=== PATIENT | male | born 2000 | race Caucasian/White ===

== ENCOUNTER 2020-03-19 11:43 | Outpatient (REF) | payer MEDICAID, SELFPAY | END 2020-03-19 11:44 | disposition home or self-care (01) | LOC: HO.LAB 11:43 | PROVIDERS: Visit Provider Internal Medicine | DX: Z20.822 Contact with and (suspected) exposure to COVID-19 (principal) | CPT/HCPCS: 36415; C9803; U0003; U0005 ==

== ENCOUNTER 2020-04-02 13:05 | Outpatient (REF) | payer MEDICAID, SELFPAY | END 2020-04-02 13:06 | disposition home or self-care (01) | LOC: HO.LAB 13:05 | PROVIDERS: Visit Provider Internal Medicine | DX: Z20.822 Contact with and (suspected) exposure to COVID-19 (principal) | CPT/HCPCS: 36415; C9803; U0003; U0005 ==

== ENCOUNTER 2023-09-02 06:46 | Emergency (ER) | payer SELFPAY ==
[2023-09-02 07:01] VITALS: BP 115/76; PULSE 96; RESP 16; TEMP 36.8; O2SAT 98; BMI 20.5
--- NOTE | 2023-09-02 07:17 | ED_ITS ---
HPI - URI/Sore Throat General Chief Complaint: Upper Respiratory Symptoms Stated Complaint: sinus pressure, headache Time Seen by Provider: 09/02/23 07:13 Source: patient, RN notes reviewed and old records reviewed Mode of arrival: ambulatory Limitations: no limitations History of Present Illness ED Provider: MEME BRAR PA-C HPI Narrative: 23-year-old male with no significant past medical history presents to the emergency department today for evaluation of myalgias, sore throat, sinus pain, headache, and cough productive of green sputum x1 day. Denies documented fever however feels warm. Reports taking Tylenol and ibuprofen with last dose being yesterday. Denies known sick contacts. All vaccinations are up-to-date. Related Data Previous Rx's ?Medication ?Instructions ?Recorded amoxicillin 875 mg-potassium 1 tab PO Q12H 7 days #14 tabs 09/02/23 clavulanate 125 mg tablet Allergies Allergy/AdvReac Type Severity Reaction Status Date / Time Penicillins [PENICILLINS] Allergy Unknown RASH Verified 09/02/23 07:03 Review of Systems Review of Systems: Constitutional: No fever, chills, fatigue, night sweats, weight changes ENT/Mouth: No ear pain, hearing loss, nasal congestion, sinus pain, rhinorrhea, +sore throat, +odynophagia, No dysphagia Eyes: No eye pain, swelling, redness, vision changes, discharge Cardio: No chest pain, palpitations, BENOIT, orthopnea, peripheral edema Pulm: No SOB, cough, sputum, wheezing, dyspnea, hemoptysis GI: No nausea, vomiting, hematemesis, abdominal pain, diarrhea, constipation, hematochezia, melena : No irregular bleeding, dysuria, frequency, urgency, hesitancy, hematuria, flank pain MSK: No back pain, neck pain, joint pain, +myalgias Skin: No lesions, rashes Neuro: No weakness, numbness, paresthesias, LOC, dizziness, +headache All other systems reviewed and are negative. [facility] Past Medical History Attestation statement: The following information was validated with the patient. Source: old records reviewed and nursing notes reviewed Social History Social History Advance Directives: No Advance Directives Information Provided: No Physical Exam Vital Signs: Vital Signs: Last Vital Signs Temp 98.3 F 09/02/23 09:53 Pulse 70 09/02/23 09:53 Resp 16 09/02/23 09:53 BP 114/66 09/02/23 09:53 Pulse Ox 99 09/02/23 09:53 O2 Del Method Room Air 09/02/23 09:53 BMI result Body Mass Index 20.5 Vital signs stable, afebrile Const: General: cooperative, healthy appearing, comfortable, no acute distress, alert and awake Orientation/consciousness: patient oriented x3 Limitations: no limitations HEENT: Other: Posterior oropharynx erythematous, no edema. No peritonsillar masses or tonsillar exudates. Uvula midline. Controlling secretions and speaking in complete sentences. Head: Yes normal to inspection, Yes No palpable skull fracture present, Yes normocephalic and Yes atraumatic Ears: hearing grossly normal bilaterally, external ears normal, TM's normal bilaterally, EAC's normal, mastoids normal and no periauricular adenopathy General nose exam: Normal external nose present and No nasal discharge present Face and sinus: Yes normal facial exam and Yes sinuses nontender Eyes: General: appearance normal, both eyes and all related structures Pupils: Equal, round and reactive pupils present Neck: Neck: Yes normal visual inspection, Yes full ROM, Yes no lymphadenopathy and Yes no meningeal signs Resp: Effort & Inspection: normal respiratory effort, able to speak in comple te sentences and no cough Auscultation: clear to auscultation bilaterally Cardio: Rate: regular rate Rhythm: regular rhythm GI: Inspection: Yes normal to inspection Palpation (GI): Soft to palpation and nontender Skin: General skin exam: no rashes or lesions noted Neuro: General: patient oriented x3, gait normal, moves all extremities and no meningeal signs Cranial nerves: Yes Equal, round and reactive pupils present Extrem: General: Yes normal to inspection Course Course Course Narrative: 920-- patient has tested negative for COVID, flu, RSV, strep throat. His physical exam is consistent with sinusitis. Of note, he does have a penicillin allergy with reaction of rash. Will administer 1 dose in the ED today and observe for reaction. If no reaction, will send home with Augmentin. His vitals have remained stable and he is still afebrile. 1000-- Patient has remained stable throughout ED visit today. Discussed worr isome signs and symptoms and when to return to the ED. All questions answered at this time. Patient is agreeable with disposition and stable for discharge. Medications Administered Discontinued Medications Generic Name Dose Route Start Last Admin Trade Name Mark PRN Reason Stop Dose Admin Amoxicillin/Clavulanate Potassium 875 mg 09/02/23 09:19 09/02/23 09:27 Amoxicillin/Potassium Clav 875 Mg Tablet PO 09/02/23 09:20 875 mg ONCE ONE Administration Ketorolac Tromethamine 30 mg 09/02/23 07:42 09/02/23 08:28 Ketorolac Tromethamine 30 Mg/Ml Vial IM 09/02/23 07:43 30 mg ONCE ONE Administration Medical Decision Making Medical Decision Making [facility] Narrative: 23-year-old male with no significant past medical history presents to the emergency department today for evaluation of myalgias, sore throat, sinus pain, headache, and cough productive of green sputum x1 day. Vital signs stable, afebrile. He is nontoxic-appearing and in no acute distress. On exam, lungs are CTA bilaterally. No active coughing. Both maxillary and frontal sinuses tender to percussion. Exam is nonfocal. No nuchal rigidity or meningeal signs. Posterior oropharynx erythematous, no edema. No peritonsillar masses or t onsillar exudates. Uvula midline. Controlling secretions and speaking in complete sentences. Bilateral EACs and TMs WNL. Clinical concern for strep throat, viral syndrome, sinusitis. Lower suspicion for otitis media, otitis externa. Unlikely mono, [employer], retropharyngeal abscess, dental abscess, epiglottis, pneumonia, bronchitis, meningitis. Plan for viral and strep swabs, pain control, and re-evaluation. Differential Diagnosis Differential Diagnoses: The differential diagnosis associated with the presentation includes as above. Admission/Observation Not indicated Lab Data [facility] Lab Attestation statement: I reviewed the patient's lab results. as above Labs: Lab Results 09/02/23 Range/Units 07:07 Influenza Type A (PCR) NEGATIVE (Negative) Influenza Type B (PCR) NEGATIVE (Negative) RSV RNA Qual (PCR) NEGATIVE (Negative) SARS-CoV-2 RNA (RT-PCR) NEGATIVE (Negative) S. pyogenes GrpA STEVEN Negative (Negative) External Record Review External record reviewed: Inpatient record Tests considered The following testing was considered but not selected: I considered ordering chest x-ray however lungs are CTA bilaterally, no concern for pneumonia at this time. Prescription Management I considered prescription management with: Pain Medication and Antibiotic Social Determinants Patient?s care significantly limited by Social Determinants of Health including: Other Social Determinant of Health Critical Care Time Critical Care Time Critical Care Time: No Discharge Plan Discharge Clinical Impression: Sinusitis Patient Disposition: Home, Self-Care Instructions: Sinusitis (ED) Additional Instructions: You tested negative for covid, flu, rsv, and strep throat. You likely have a sinus infection. Augmentin is an antibiotic that has been sent to your pharmacy for treatment. Take this to completion and do not skip any doses. On amoxicillin-clavulanate, softer bowel movements are to be expected. Call your provider if you move your bowels more than 4 times a day, your bowel movements are almost all liquid, or you get a rash.? You may take tylenol and motrin at home as needed for pain/ fevers. Return with new or worsening symptoms. In the case of an emergency call 911. Prescriptions: New amoxicillin-pot clavulanate 875-125 mg tablet 1 tab PO Q12H 7 Days Qty: 14 0RF Stand Alone Forms: Work/School Release Discharge Date/Time: 09/02/23 09:54 Print Language: Burmese
[2023-09-02 07:41] LABS: IDNOW Serial# 6674DD1D; Strep A Nucleic Acid Negative (Negative)
[2023-09-02] MEDS: Ketorolac Tromethamine 30 MG/ML VIAL IM (08:28)
[2023-09-02 09:15] LABS: Influenza A PCR NEGATIVE (Negative); Influenza B PCR NEGATIVE (Negative); Resp Syncy Virus RNA Qual PCR NEGATIVE (Negative); SARS COV2 PCR INHOUSE NEGATIVE (Negative)
[2023-09-02] MEDS: Amoxicillin/Potassium Clav 875 MG TABLET PO (09:27)
[2023-09-02 09:53] VITALS: BP 114/66; PULSE 70; RESP 16; TEMP 36.8; O2SAT 99
== END 2023-09-02 09:54 | disposition home or self-care (01) ==
PROVIDERS: Emergency Provider Emergency Medicine
DX: J32.8 Other chronic sinusitis (principal); R51.9 Headache, unspecified; J02.9 Acute pharyngitis, unspecified; Z03.818 Encounter for observation for suspected exposure to other biological agents ruled out
CPT/HCPCS: 0241U; 87651; 96372; 99284; J1885

== ENCOUNTER 2024-05-17 12:11 | Emergency (ER) | payer SELFPAY ==
[2024-05-17 12:20] VITALS: BP 112/77; PULSE 83; RESP 16; TEMP 37; O2SAT 99; BMI 19.9
--- NOTE | 2024-05-17 12:24 | ED_ITS ---
HPI - Nausea/Vomiting/Diarrhea General Chief complaint: Abdominal Pain Stated complaint: Vomiting Time Seen by Provider: 05/17/24 17:08 Source: patient Mode of arrival: ambulatory Limitations: no limitations History of Present Illness ED Provider: TATIANA HPI Narrative: 23 yo male with no PMH here with waking up with nausea and vomiting no diarrhea no fevers, no bloody stools started while at work. Recent sick contact, no travel, food exposures, abx use. MD elicited complaint: nausea and vomiting Onset (ago): day(s) (1) Description of vomiting: watery Associated nausea: Yes Associated abdominal pain: No Severity: moderate Exacerbating factors: eating Relieving factors: none Context: sick contacts Associated symptoms: loss of appetite, malaise and nausea/vomiting Related Data Previous Rx's ?Medication ?Instructions ?Recorded amoxicillin 875 mg-potassium 1 tab PO Q12H 7 days #14 tabs 09/02/23 clavulanate 125 mg tablet ondansetron 4 mg disintegrating 4 mg PO Q8H PRN nausea and 05/17/24 tablet vomiting #20 tabs Allergies Allergy/AdvReac Type Severity Reaction Status Date / Time Penicillins [PENICILLINS] Allergy Unknown RASH Verified 05/17/24 12:23 Review of Systems 2 Review of Systems: Constitutional : No Weight loss, No Fever, No Chills ENT/Mouth : No sore throat, No Rhinorrhea Eyes: No Swelling, No Redness Cardiovascular : No Chest Pain, No SOB, NoEdema Respiratory : No Cough, No Sputum, No Wheezing Gastrointestinal : Positive Nausea, Positive Vomiting, no Diarrhea, positive abdominal Pain, No Hematochezia, No Melena Genitourinary : No Dysuria, No Urinary Frequency, No Hematuria, No Urgency Musculoskeletal : No joint pain, No Myalgias, No Joint Swelling Skin : No Skin Lesions, No rash Neuro : No Weakness, No Numbness, No Dizziness, No Headache Psych : No Anxiety/Panic, No Depression All other systems reviewed and are negative. Gastrointestinal: Gastrointestinal: Reports nausea PMFSH Past Medical History Attestation statement: The following information was validated with the patient. Source: old records reviewed Medical History (Updated 05/17/24 @ 17:22 by Sandy Tobias DO) No pertinent past medical history Social History Social History (Updated 05/17/24 @ 17:22 by Sandy [place], DO) Patient Tobacco Use Status: Never used Tobacco Physical Exam 2 Vital Signs: Vital Signs: Last Vital Signs Temp 98.2 F 05/17/24 17:06 Pulse 67 05/17/24 17:06 Resp 15 05/17/24 17:06 BP 114/68 05/17/24 17:06 Pulse Ox 100 05/17/24 17:06 O2 Del Method Room Air 05/17/24 17:06 BMI result Body Mass Index 19.9 Appearance: Alert. Oriented X3. No acute distress. Eyes: Pupils equal, round and reactive to light. ENT: Pharynx normal. Neck: Normal inspection. Neck supple. CVS: Normal heart rate and rhythm. Pulses normal. Respiratory: No respiratory distress. Breath sounds normal. Abdomen: Soft and nontender. Skin: Skin warm and dry. Normal skin color. Normal skin turgor. Extremities: No lower extremity edema. No calf ttp Neuro: Oriented X 3. No motor deficit. No sensory deficit. CN2-12 intact Course Course Course Narrative: This is an RME: Additional HPI, ROS, PE not included below will be deferred to primary provider. RME assessment and note performed by: Ana Dykes PA-C This is a 23-year- old male, with no known medical problems, who presents emergency department complaints of abdominal pain, nausea and vomiting started this morning. Positive sick contacts at home. +marijuana use. Plan: Labs, covid/flu/rsv Medications Administered Discontinued Medications Generic Name Dose Route Start Last Admin Trade Name Freq PRN Reason Stop Dose Admin Ondansetron HCl 4 mg 05/17/24 17:03 05/17/24 17:06 Ondansetron Odt 4 Mg Tab.Rapdis TRANSLINGU 05/17/24 17:04 4 mg ONCE STA Administration Medical Decision Making Medical Decision Making [facility] Narrative: 23 yo male with no sig PMH here with c/o n/v but is now able to tolerate PO he reports sick contacts, has no localized ttp at this time. Will obtain labs and start on bland diet and ODT zofran, no localized pain to suggest appendicitis/biliary colic. Differential Diagnosis Differential Diagnoses: The differential diagnosis associated with the presentation includes dehydration, viral syndrome Admission/Observation Consideration of admission/observation: Escalation of care including admission/observation considered tolerating PO feels much better stable for DC Lab Data [facility] Lab Attestation statement: I reviewed the patient's lab results. wbc count likely due to vomiting 05/17/24 13:07 05/17/24 13:07 Labs: Lab Results 05/17/24 Range/Units 13:07 WBC 12.1 H (4.8-10.8) X10*3/uL RBC 5.77 (4.60-5.80) X10*6/uL Hgb 15.2 (14.0-18.0) g/dl Hct 47.5 (42.0-52.0) % MCV 82.3 (80.0-98.0) fL MCH 26.3 L (27.0-33.0) pg MCHC 32.0 (31.0-36.0) g/dl RDW 13.7 (11.0-16.0) % Plt Count 324 (160-400) X10*3/uL MPV 9.0 L (9.4-12.4) fL Immature Gran % (Auto) 0.2 (0.0-0.4) % Neut % (Auto) 83.1 H (45-73) % Lymph % (Auto) 7.3 L (20-40) % Winn % (Auto) 6.7 (2-11) % Eos % (Auto) 2.5 (0-4) % Baso % (Auto) 0.2 (0-2) % Lymph # (Auto) 0.9 L (1.2-4.9) X10*3/uL Winn # (Auto) 0.8 (0.1-1.2) X10*3/uL Eos # (Auto) 0.3 (0.0-0.4) X10*3/uL Baso # (Auto) 0.0 (0.0-0.2) X10*3/uL Abs Immat Gran (auto) 0.03 (0.00-0.03) X10*3/uL Absolute Neuts (auto) 10.1 H (2.0-8.3) x10*3/uL Absolute Nucleated RBC 0.000 (0.0-0.012) X10*3/uL Nucleated RBC % (auto) 0.0 (0.0-0.2) /100WBC Sodium 141 (135-145) mmol/L Potassium 4.1 (3.3-5.1) mmol/L Chloride 105 (96-108) mmol/L Carbon Dioxide 30 H (22-29) mmol/L Anion Gap 10 L (12-20) BUN 21 H (9-16) mg/dL Creatinine 1.08 (0.5-1.4) mg/dL Estim Creat Clear Calc 92.1 Estimated GFR > 60 Random Glucose 89 (60-115) mg/dL Calcium 9.9 (8.4-10.2) mg/dL Magnesium 2.2 (1.6-2.6) mg/dL Total Bilirubin 0.8 (0.0-1.0) mg/dL Direct Bilirubin 0.3 (0.0-0.5) mg/dL AST 26 (5-37) U/L ALT 24 (0-40) U/L Alkaline Phosphatase 88 (39-117) U/L Total Protein 7.5 (6.5-8.0) g/dL Albumin 4.9 (3.5-5.0) g/dL Lipase 19 (8-78) U/L Influenza Type A (PCR) NEGATIVE (Negative) Influenza Type B (PCR) NEGATIVE (Negative) RSV RNA Qual (PCR) NEGATIVE (Negative) SARS-CoV-2 RNA (RT-PCR) NEGATIVE (Negative) Prescription Management I considered prescription management with: Other Discharge Plan Discharge Clinical Impression: Acute nausea with nonbilious vomiting Patient Disposition: Home, Self-Care Instructions: Acute Nausea and Vomiting (ED) Additional Instructions: rest and stay hydrated bland diet bananas rice apple sauce and toast return for worsening symptoms, pain, fevers, bloody stools unable to eat or drink or any other concerns. Prescriptions: New ondansetron 4 mg tablet,disintegrating 4 mg PO Q8H PRN (Reason: nausea and vomiting) Qty: 20 0RF No Action amoxicillin-pot clavulanate 875-125 mg tablet 1 tab PO Q12H 7 Days Qty: 14 0RF Stand Alone Forms: Work/School Release Print Language: Chinese
[2024-05-17 13:13] LABS: MANUAL DIFF FLAG NO
[2024-05-17 13:15] LABS: Basophils Percent Auto 0.2 % (0-2); Eosinophils Absolute Auto 0.3 X10*3/uL (0.0-0.4); Eosinophils Percent Auto 2.5 % (0-4); Hematocrit 47.5 % (42.0-52.0); Hemoglobin 15.2 g/dl (14.0-18.0); Imm Gran Abs Auto 0.03 X10*3/uL (0.00-0.03); Imm Gran Pct Auto 0.2 % (0.0-0.4); Lymphocytes Absolute Auto 0.9 X10*3/uL (1.2-4.9); Lymphocytes Percent Auto 7.3 % (20-40); Mean Corpuscular Hemoglobin 26.3 pg (27.0-33.0); Mean Corpuscular Volume 82.3 fL (80.0-98.0); Monocytes Absolute Auto 0.8 X10*3/uL (0.1-1.2); Monocytes Percent Auto 6.7 % (2-11); Neutrophils Absolute Auto 10.1 x10*3/uL (2.0-8.3); Neutrophils Percent Auto 83.1 % (45-73); Platelet Count 324 X10*3/uL (160-400); Red Blood Count 5.77 X10*6/uL (4.60-5.80); Red Cell Distribution Width 13.7 % (11.0-16.0); White Blood Count 12.1 X10*3/uL (4.8-10.8)
[2024-05-17 13:31] LABS: Alanine Aminotransferase 24 U/L (0-40); Albumin Level 4.9 g/dL (3.5-5.0); Alkaline Phosphatase 88 U/L (39-117); Anion Gap 10 (12-20); Aspartate Amino Transferase 26 U/L (5-37); Bilirubin Direct 0.3 mg/dL (0.0-0.5); Bilirubin Total 0.8 mg/dL (0.0-1.0); Blood Urea Nitrogen 21 mg/dL (9-16); Calcium 9.9 mg/dL (8.4-10.2); Carbon Dioxide 30 mmol/L (22-29); Chloride 105 mmol/L (96-108); Creatinine Clr Calc Pharmacy 92.1; Estimated Glomerular Filt Rate > 60; Glucose Random 89 mg/dL (60-115); Lipase 19 U/L (8-78); Magnesium 2.2 mg/dL (1.6-2.6); Potassium 4.1 mmol/L (3.3-5.1); Sodium 141 mmol/L (135-145); Total Protein 7.5 g/dL (6.5-8.0)
[2024-05-17 13:53] LABS: Influenza A PCR NEGATIVE (Negative); Influenza B PCR NEGATIVE (Negative); Resp Syncy Virus RNA Qual PCR NEGATIVE (Negative); SARS COV2 PCR INHOUSE NEGATIVE (Negative)
[2024-05-17 17:06] VITALS: BP 114/68; PULSE 67; RESP 15; TEMP 36.8; O2SAT 100
[2024-05-17] MEDS: Ondansetron ODT 4 MG TAB.RAPDIS TRANSLINGU (17:06)
--- NOTE | 2024-05-17 17:09 | PC.NURSE ---
Pt will attempt PO trial in 20 minutes. Is well appearing, moist mm, skin PWD. no active vomiting.
[2024-05-17 17:35] VITALS: BP 114/68; PULSE 67; RESP 15; TEMP 36.8; O2SAT 100
--- OUTSIDE RECORDS SUMMARY | 2024-05-17 19:03 | XMS_ITS | Encounter Summary ---
Author Organization [facility] Address [address] [place] [phone] Phone Care Team Providers Care Health Facilities Surveyor Name Role Phone Enoch Garcia MD Primary Care Provider [phone] Encounter Details Date Type Department Care Team (Late st Contact Info) Description 05/25/2015 Documentation [facility] [place] [facility] [address] [place] [address] Family Medicine, Physician [address] [place], [place] [id number] Social History Tobacco Use Types Packs/Day Years Used Date Smoking Tobacco: Never Assessed Sex and Gender Information Value Date Recorded Sex Assigned at Not on file Legal Sex Male 4:57 PM EDT Gender Identity Not on file Sexual Orientation Not on file documented as of this encounter Plan of Treatment Not on file documented as of this encounter Visit Diagnoses Not on filedocumented in this encounter Care Teams Health Facilities Surveyor Relationship Specialty Start Date End Date Enoch Garcia MD [address] [place] [address] DEVIN Batista [id number] PCP - General 09/26/16 05/26/22 documented as of this encounter
--- OUTSIDE RECORDS SUMMARY | 2024-05-17 19:03 | XMS_ITS | Clinical Summary ---
Author Organization [facility] Address [address] [place] [phone] Phone Care Team Providers Care Portuguese Tutor Name Role Phone Unavailable Primary Care Provider Unavailabl e Immunizations Immunization Administration Dates Next Due DTaP 5 03/19/2005, 2,03/11/2001, 001,2000 HPV Vaccine 9 Valent 09/04/2014 HPV, Quadrivalent 02/03/2014,01/03/2014 Hep A, ped/adol 09/04/2014,01/03/2014 Hep B, ped/adol 09/17/2001,2000,2000 Hib (HbOC) 09/17/2001,2000,2000 IPV 03/19/2005, 2,2000, 001 Influenza, intranasal, quadrivalent 01/03/2014 MMR 03/19/2005,07/29/2001 Meningococcal Conj (Menactra) MCV4P 09/28/2012 Tdap 09/28/2012 Varicella 09/28/2012,07/29/2001 Family History Relation Name Status Comments Father Alive Father: Hyperte nsion Maternal Grandmother Materna l grandmother: thrombophilia, Heart disease Mother Mother: Anxiety / depression , muscle spasm, reflex Other Family history of Asthma, Family history of Migraines, Family history of Hypertension, Family history of Obesity, Family history of Diabetes mellitus, Family history of Hyperlipidemia, Family history of Developmental dislocation of hip Sister 1 Alive Sister: Alive a nd well, Alive and well Sister 2 Alive Sister: Alive a nd well, Alive and well Social History Tobacco Use Types Packs/Day Years Used Date Smoking Tobacco: Never Assessed Sex and Gender Information Value Date Recorded Sex Assigned at Not on file Legal Sex Male 4:57 PM EDT Gender Identity Not on file Sexual Orientation Not on file Last Filed Vital Signs Vital Sign Reading Time Taken Comments Blood Pressure 112/72 09/04/2014 12:00 AM EDT Pulse 77 09/04/2014 12:00 AM EDT Temperature 36.7 ??C (98 ??F) 09/04/2014 12:00 AM EDT Respiratory Rate - - Oxygen Saturation - - Inhaled Oxygen Concentration - - Weight 52.4 kg (115 lb 9.6 oz) 09/04/2014 12:00 AM EDT Height 166.6 cm (5' 5.6 ) 07/27/2014 12:00 AM ED T Body Mass Index - - Plan of Treatment Health Maintenance Due Date Last Done Comments Men B Vaccine (1 of 2 - Standard) 2016 DTaP,Tdap,and Td Vaccines (7 - Td or Tdap) 09/28/2022 09/28/2012, 03/19/2005, 09/17/2001, Additional history exists Influenza Vaccines (#1) 2023 01/03/2014 COVID-19 Vaccine ( season) 2023 HIB Vaccines Completed 09/17/2001, 12/17, 2000 Hepatitis B Vaccines Completed 09/17/2001, 2000, 2000 IPV Vaccines Completed 03/19/2005, 02/17, 2000, Additional history exists MMR Vaccines Completed 03/19/2005, 07/29/2001 Meningococcal Vaccine Aged Out 09/28/2012 No britta nicola eligible based on patient's age to complete this topic Varicella Vaccines Completed 09/28/2012, 07/29/2001 HPV Vaccines Completed 09/04/2014, 01/16, 01/03/2014 Hepatitis A Vaccines Completed 09/04/2014, 01/04/20 14 Pneumococcal Vaccine Aged Out No long er eligible based on patient's age to complete this topic
--- OUTSIDE RECORDS SUMMARY | 2024-05-17 19:03 | XMS_ITS | Encounter Summary ---
Author Organization [facility] Address [address] [place] [address] Phone Care Team Providers Care Glost Tile Shader Name Role Phone Enoch Garcia MD Primary Care Provider [phone] Encounter Details Date Type Department Care Team (Late st Contact Info) Description 10/02/2016 Conversion Encounter [facility] [place] [address] [place] [address] Social History Tobacco Use Types Packs/Day Years [...] on filedocumented in this encounter Care Teams Glost Tile Shader Relationship Specialty Start Date End Date Enoch Garcia MD [address] [place] [address] PCP - General 09/26/16 05/26/22 documented as of this encounter
--- OUTSIDE RECORDS SUMMARY | 2024-05-17 19:03 | XMS_ITS | Encounter Summary ---
Author Organization [facility] Address [address] [place] [phone] Phone Care Team Providers Care Electrocardiograph Operator Name Role Phone Enoch Garcia MD Primary Care Provider [phone] Encounter Details Date Type Department Care Team (Late st Contact Info) Description 11/12/2012 Documentation [facility] Family Medicine [address] [place] [address] Family Medicine, Physician [address] [place], [place] [phone] Social History Tobacco Use Types Packs/Day Years [...] on filedocumented in this encounter Care Teams Electrocardiograph Operator Relationship Specialty Start Date End Date Enoch Garcia MD [address] [place] [address] DEVIN Batista [id number] PCP - General 09/26/16 05/26/22 documented as of this encounter
== END 2024-05-17 17:36 | disposition home or self-care (01) ==
PROVIDERS: Physician Assistant Medical; Emergency Provider Emergency Medicine
DX: R11.2 Nausea with vomiting, unspecified (principal); Z03.818 Encounter for observation for suspected exposure to other biological agents ruled out; F12.90 Cannabis use, unspecified, uncomplicated
CPT/HCPCS: 0241U; 80048; 80076; 83690; 83735; 85025; 99283; 99284